=== PATIENT | female | born 1940 | race Caucasian/White ===

== ENCOUNTER 2016-09-18 06:30 | Day surgery (SDC) | payer MEDICARE ==
[~2016-09-18 06:30] MED LIST: AMLODIPINE5 MG PO; ASPIRIN81 MG PO; ATORVASTATIN CA10 MG PO; COQ-10100 M1 PO; FAMOTIDINE20 M1 PO; FLONASE AL50 MCG/ACT IN; LOSARTAN POT50 MG PO; NASONEX50 MCG/ACT NAB; PRILOSEC40 MG PO
[2016-09-18 08:26] VITALS: BP 119/64
== END 2016-09-18 08:55 | disposition home or self-care (01) ==
LOC: ENDO 06:30
PROVIDERS: ATTEND Surgery
PROC: 0DJD8ZZ Inspection of Lower Intestinal Tract, Via Natural or Artificial Opening Endoscopic (ICD-10-PCS; principal; 2016-09-18)
DX: Z12.11 Encounter for screening for malignant neoplasm of colon (principal); K57.30 Diverticulosis of large intestine without perforation or abscess without bleeding